=== PATIENT | female | born 1975 | race Caucasian/White ===

== ENCOUNTER 2024-04-27 21:43 | Emergency (ER) | payer OTHER, SELFPAY ==
--- NOTE | ~2024-04-27 | CT_ITS ---
EXAMINATION: CTA chest PE protocol DATE: 04/28/2024 00:24 INDICATION: Mid chest pain. TECHNIQUE: Computed tomography angiography (CTA) of the chest was performed with 100 mL Omnipaque-350 intravenous contrast timed to evaluate the pulmonary arteries. Coronal maximum intensity projection 3D-reconstructions were created by the technologist. Automated exposure control and iterative reconst ruction technique were employed. The dose-length product was 287.75 mGy-cm. COMPARISON: CT abdomen pelvis 11/23/2018 FINDINGS: The lungs demonstrate mild atelectasis. There is a cluster of nodules in superior segment r ight lower lobe. There are trace pleural effusions. The heart size is normal. There is a trace perica rdial effusion. There is no pulmonary embolus. The bones are unremarkable. IMPRESSION: 1. Nodules in superior segment right lower lobe, consistent with pneumonia. Consider noncontrast low- dose chest CT in 3 months to confirm resolution. 2. No pulmonary embolus. Reviewed, dictated and finalized at location E. IMPRESSION: 1. Nodules in superior segment right lower lobe, consistent with pneumonia. Con records management clerk noncontrast low-dose chest CT in 3 months to confirm resolution. 2. No pulmonary embolus.
--- NOTE | ~2024-04-27 | XR_ITS ---
XR chest 2V Ordering provider: Rubén Phillips DO History: 48 years Female with . middle cp. HX PE x4 mos ago . Comparison: None. FINDINGS: MEDIASTINUM: The cardiac silhouette is not enlarged. LUNGS: No infiltrates, effusions or pneumothorax. OTHER: No free air under the diaphragm. IMPRESSION: No acute cardiopulmonary pathology. Reviewed, dictated and finalized at location A.
--- NOTE | 2024-04-27 21:44 | ECG_ITS ---
Test Date: 2024-04-27 21:47:53 Measurements Intervals [place] Rate: 93 P: 29 IA: 127 QRS: 3 QRSD: 77 T: 31 QT: 353 QTc: 441 Interpretive Statements SINUS RHYTHM NONSPECIFIC ST-T WAVE ABNORMALITY- IN/HIGH LAT LEADS BASELINE ARTIFACT- II, III, AVR, AVL, AVF, V1-V6 BORDERLINE ECG No previous ECG available for comparison Electronically Signed On 04-28-2024 07:47:15 CDT by Maikol Corrales D.O.
[2024-04-27 21:50] VITALS: BP 126/88; PULSE 96; RESP 19; TEMP 36.8; O2SAT 100
[2024-04-27 22:07] LABS: Basophils Percent Auto 0.5 % (0.2-1.2); Eosinophils Percent Auto 0.7 % (0-4.4); Hematocrit 28.4 % (37.0-47.0); Hemoglobin 8.6 g/dL (12.0-15.0); Immature Granulocyte Absolute 0.01 K/mm3 (0.00-0.031); Immature Granulocyte Percent A 0.2 % (0-0.5); Immature Platelet Fraction Pct 4.3 % (0.9-11.2); Lymphocytes Absolute Auto 2.14 K/mm3 (0.9-3.2); Lymphocytes Percent Auto 38.8 % (18.3-44.2); Mean Corpuscular HGB Conc 30.3 g/dl (32-36); Mean Corpuscular Hemoglobin 22.4 pg (26-34); Monocytes Absolute Auto 0.3 K/mm3 (0.1-0.6); Monocytes Percent Auto 6.2 % (2.6-8.5); Neutrophils Percent Auto 53.6 % (45.5-73.1); Platelet Count Result 252 k/mm3 (150-375); Red Blood Count 3.84 M/mm3 (4.2-5.4); White Blood Count 5.5 K/mm3 (4.5-10.0)
[2024-04-27 22:14] LABS: Alanine Aminotransferase 17 U/L (6-35); Albumin Level 4.1 g/dL (3.5-5.1); Alkaline Phosphatase 95 U/L (38-126); Anion Gap 8 mmol/L (4-12); Aspartate Amino Transferase 24 U/L (14-36); Bilirubin,Total 0.6 mg/dL (0.2-1.3); Blood Urea Nitrogen 15 mg/dL (7-17); Carbon Dioxide 29 mmol/L (22-30); Chloride 101 mmol/L (98-107); Estimated CRCL calculation 74 ml/min; Estimated Glomerular Filt Rate > 60; Glucose 144 mg/dL (65-110); Lipase 217 U/L (23-300); Potassium 3.3 mmol/L (3.4-5.0); Sodium 138 mmol/L (137-145)
[2024-04-27 22:24] LABS: INR 0.9; Prothrombin Time 12.4 Seconds (11.1-14.7)
[2024-04-27 22:26] LABS: Troponin I < 0.012 ng/mL (0.000-0.034)
[2024-04-27 22:35] LABS: Anisocytosis 1+; Hypochromasia 2+; Ovalocytes 1+; Platelet Estimate Adequate (Adequate); Schistocytes None Seen
[2024-04-27 22:47] VITALS: O2SAT 99
[2024-04-27 22:48] VITALS: PULSE 87
[2024-04-27] MEDS: POTASSIUM CHLORIDE 20 MEQ PACKET (FOR LIQUID) PO (23:26)
--- NOTE | 2024-04-28 00:22 | ED.CHESTPAIN ---
HPI - Chest Pain General Chief Complaint: Chest Pain Stated Complaint: chest pain Time Seen by Provider: 04/27/24 23:02 Source: patient Limitations: no limitations History of Present Illness HPI narrative: Patient is a 48-year-old female presents to the emergency department complaining of chest pain. Patient states it feels like there is something sitting on her chest, started around 5:00 p.m. today while she was resting at home, denies history is the past, has a nose anything making it better worse, overall it has been constant and has not gone away, has not tried anything for the patient is to history of a pulmonary embolism after she had surgery months ago and she is on blood thinners currently in taking these as prescribed. Patient admits to recent exertional activity over the past few days in which she went to a water park and no feels a little bit sore in her legs. Patient denies any cough, fever, recent injuries, recent illness, nausea, vomiting, diarrhea, melena, hematochezia, abnormal heart rhythms. Patient denies being a smoker. Patient admits to history of cholesterol dysfunction and hypertension. Related Data Allergies Allergy/AdvReac Type Severity Reaction Status Date / Time fentanyl Allergy Intermediate Jittery Verified 11/23/18 12:31 Penicillins Allergy Mild Verified 03/24/10 12:53 Tetanus Vaccines and Toxoid Allergy Mild Verified 03/24/10 12:53 NORGESTIMATE-ETHINYL Allergy Mild Uncoded 03/24/10 12:53 ESTRADIOL Review of Systems Review of Systems: A 10 system review of systems was completed on the patient and is negative except for what is stated in the HPI. Nursing and ancillary documentation was reviewed. PMFSH Comments At time of signature, I have reviewed and agree with nursing past medical, surgical, social and family history unless otherwise noted. Please see the nursing chart for further information. There is no relevant family history pertinent to the presenting complaint. Exam Narrative: CONST: No acute distress. Well nourished. HENMT: Head is normocephalic and atraumatic. Moist mucous membranes. No posterior oropharynx erythema. EYES: No conjunctival icterus, injection, or pallor. PERRL. NECK: No meningeal signs. No JVD. RESP: Able to speak in full sentences. Normal respiratory effort. CTAB. CARDIO: Regular rate. Regular rhythm. 2+ DP and radial pulses bilaterally. GI: Nondistended. No tenderness to palpation. Soft. : No CVA tenderness to palpation. SKIN: No rashes or lesions noted on exposed skin. NEURO: Oriented x3. Moves all extremities. EXTREM/MSK/BACK: No pedal edema. PSYCH: Normal affect. Course Vital Signs Vital signs: Vital Signs Temperature 98.3 F 04/27/24 21:50 Pulse Rate 96 04/27/24 21:50 Respiratory Rate 19 04/27/24 21:50 Blood Pressure 126/88 04/27/24 21:50 Pulse Oximetry 100 04/27/24 21:50 Oxygen Delivery Room Air 04/27/24 21:50 Temperature 98.3 F 04/27/24 21:50 Pulse Rate 90 04/28/24 04:16 Respiratory Rate 18 04/28/24 04:16 Blood Pressure 143/92 H 04/28/24 04:16 Pulse Oximetry 98 04/28/24 04:16 Oxygen Delivery Room Air 04/27/24 22:47 MDM - Chest Pain MDM Narrative Medical decision making narrative: Patient presents with the above complaint. Initial vitals are remarkable for no significant abnormalities. Physical examination as noted above. Differential diagnosis includes was not limited to: ACS, pneumonia, pulmonary embolism, pancreatitis, pneumothorax, GERD. Plan discussed: Laboratory analysis, EKG, chest x-ray, continues cardiac monitoring, continuous pulse oximetry, aspirin. Patient was reassessed at the bedside. No changes in physical exam. Patient is in no acute distress. The patient has remained stable throughout the entire ED visit. Patient prescribed levofloxacin, given 1st dose of levofloxacin in the emergency department given her allergy to penicillins. Patient started on the importance of o
[2024-04-28 00:39] VITALS: BP 159/85; PULSE 85; RESP 14; O2SAT 100
[2024-04-28] MEDS: SODIUM CHLORIDE 0.9% IV 1,000 ML 999 ML IV CONT (01:06)
[2024-04-28] MEDS: FAMOTIDINE 20 MG/2 ML VIAL IV PUSH (01:07)
[2024-04-28 01:31] LABS: Magnesium 1.7 mg/dL (1.6-2.3)
[2024-04-28 01:43] LABS: Troponin I < 0.012 ng/mL (0.000-0.034)
[2024-04-28 03:13] VITALS: BP 160/88; PULSE 84; RESP 16; O2SAT 99
[2024-04-28] MEDS: levoFLOXacin 750 MG TABLET PO (04:14)
[2024-04-28 04:16] VITALS: BP 143/92; PULSE 90; RESP 18; O2SAT 98
== END 2024-04-28 04:18 | disposition home or self-care (01) ==
PROVIDERS: Emergency Provider Student in an Organized Health Care Education/Training Program
DX: E87.6 Hypokalemia (principal); J18.9 Pneumonia, unspecified organism; R07.9 Chest pain, unspecified; I10 Essential (primary) hypertension
CPT/HCPCS: 36415; 71046; 71275; 80053; 83690; 83735; 84484; 85025; 85055; 85380; 85610; 85730; 93005; 96361; 96374; 99284; A9270; J7030; Q9967